=== PATIENT | female | born 2000 | race Caucasian/White ===

== ENCOUNTER 2018-03-20 14:21 | Emergency (ER) | payer SELFPAY ==
[2018-03-20 14:33] VITALS: BP 122/71; PULSE 85; TEMP 98.4; BMI 32.8
--- NOTE | 2018-03-20 14:42 | PDOC ---
History of Present Illness - General Chief Complaint: Injury Stated Complaint: ANKLE PAIN Time Seen by Provider: 03/20/18 14:32 History Source: Patient Exam Limitations: No Limitations - History of Present Illness Initial Comments: 03/20/18 14:41 pt slipped and missed a step walking down steps injured right foot. Occurred: reports: just prior to arrival Severity: reports: moderate Pain Location: reports: lower extremity Past History - Past Medical History Allergies/Adverse Reactions: Allergies Allergy/AdvReac Type Severity Reaction Status Date / Time No Known Allergies Allergy Verified 03/20/18 14:24 Home Medications: Ambulatory Orders NK [No Known Home Medication] 03/20/18 COPD: No - Suicide/Smoking/Psychosocial Hx Smoking History: Never smoked Have you smoked in the past 12 months: No Information on smoking cessation initiated: No Hx Alcohol Use: No Drug/Substance Use Hx: No Substance Use Type: None *Physical Exam - Vital Signs Last Vital Signs Temp Pulse Resp BP Pulse Ox 98.4 F 85 20 122/71 100 03/20/18 14:25 03/20/18 14:25 03/20/18 14:25 03/20/18 14:25 03/20/18 14:25 - Physical Exam General Appearance: Yes: Nourished, Appropriately Dressed Extremity: positive: Normal Capillary Refill, Tender (lateral right foot base of fifth metatarsal, swelling noted, nv intact moves all toes.) Integumentary: positive: Normal Color, Dry, Warm Neurologic: positive: Fully Oriented, Normal Response, Motor Strength 5/5 Medical Decision Making - Medical Decision Making 03/20/18 14:54 cc: right foot injury today missed a step and inverted the foot will xray to r/o fracture *DC/Admit/Observation/Transfer Diagnosis at time of Disposition: Right foot sprain Qualifiers: Encounter type: initial encounter Qualified Code(s): S93.601A - Unspecified sprain of right foot, initial encounter - Discharge Dispostion Disposition: HOME Condition at time of disposition: Good - Referrals Referrals: Roshan Brownlee MD [Staff Physician] - - Patient Instructions Additional Instructions: elevate and apply ice every 2hrs for 20 minutes for the next 2 days while awake take ibuprofen 600-800mg every 6-8hrs for pain follow with the operations team leader for follow up use the bambi wrap and hard sole shoe - Post Discharge Activity
[2018-03-20] MEDS ORDERED: IBUPROFEN 600 MG TABLET (FP) PO ONE (14:54)
[2018-03-20] MEDS ORDERED: IBUPROFEN 400 MG TABLET (FP) PO ONE (15:00)
== END 2018-03-20 15:25 | disposition home or self-care (01) ==
LOC: JER 14:21 → JERFT 14:21
DX: S93.601A Unspecified sprain of right foot, initial encounter (principal); X58.XXXA Exposure to other specified factors, initial encounter; Y93.89 Activity, other specified; Y92.9 Unspecified place or not applicable
CPT/HCPCS: 73630-TC-RT-FY; 84703; 99281-25